=== PATIENT | female | born 1940 | race Caucasian/White ===

== ENCOUNTER 2019-03-25 13:39 | Outpatient (CLI) | payer MEDICARE, OTHER, SELFPAY ==
--- NOTE | 2019-03-25 13:44 | DI.RAD.S_ITS ---
PROCEDURE: PAIN L/SI FACET INJ/BLK 1STL INDICATIONS: Left L4-5 L5-S1 facets FINDINGS: Fluoroscopic spot filming was performed to verify placement of spinal needles at the L4-L5 and L5-S1 level(s), as labeled on the films. Appropriate location(s) of the needle tip(s) was confirmed by injection of iodinated contrast. Dictated by: Gerry Pizarro M.D. on 03/25/2019 at 16:00 Approved by: Gerry Pizarro M.D. on 03/25/2019 at 16:00
[2019-03-25 14:17] VITALS: BP 156/62; PULSE 49; RESP 16; TEMP 35.8; O2SAT 100
[2019-03-25 14:55] VITALS: BP 176/55; PULSE 52; RESP 16; O2SAT 100
--- NOTE | 2019-03-25 14:56 | PC.NURSE ---
NO SEDATION MEDS GIVEN
[2019-03-25 15:00] VITALS: BP 183/62; PULSE 57; RESP 16; O2SAT 100
[2019-03-25] MEDS: BETAMETHASONE 30 MG/5 ML MDV 12 MG INJ (15:02)
[2019-03-25] MEDS: LIDOCAINE 1% 20 ML 10 ML INJ (15:02)
[2019-03-25] MEDS: BUPIVACAINE 0.5% (PF) VIAL 2 ML INJ (15:02)
[2019-03-25] MEDS: IOPAMIDOL 15 ML VIAL 3 ML INJ (15:03)
--- NOTE | 2019-03-25 15:05 | PC.NURSE ---
ASSISTING PT OFF TABLE AND TRANSPORTING TO POST PROC AREA IN STABLE CONDITION. NO SEDATION MEDS GIVEN.
--- NOTE | 2019-03-25 15:12 | PM.PROC.1 ---
Procedures Date/Time Date of procedure: 03/25/19 Time of procedure: 15:12 General Procedure description: PREOP DIAGNOSIS 1. FACET ARTHROPATHY, 2. AXIAL LBP, 3. MULTILEVEL DDD, POST OP DIAGNOSIS 1. FACET ARTHROPATHY, 2. AXIAL LBP, 3. MULTILEVEL DDD, PROCEDURES 1. FLUORSCOPICALLY GUIDED CONTRAST CONTROLLED FACET JOINT INJECTIONS LEFT L4/5, L5/S1 SURGEON: Danny Brown, DO INDICATIONS Zunilda is referred by Dr. Priest for treatment of Axial LBP FINDINGS Multilevel Facet Arthropathy with Clinically significant axial LBP DESCRIPTION OF PROCEDURE Fluoroscopically guided, contrast-controlled left L4/5, L5/S1 facet joint injections. Following review of allergy and review of potential side effects and complications, including, but not necessarily limited to, infection, allergic reaction, local tissue breakdown, stroke, temporary or permanent nerve injury, paralysis, and possible , the patient indicated that the patient understood and agreed to proceed. An informed consent document was signed by the patient, witnessed by a nurse, and placed in the patient's chart. Additionally, other treatment options including medications, modalities, and physical therapy were reviewed with the patient. After review of previous anaesthesic history and IV conscious sedation the patient was deemed safe to proceed with todays procedure with IV conscious sedation as ASA class II designation. Safety time-out was performed to confirm patient ID, procedure to be performed and site of procedure. IV sedation was deemed unnecessary and thus not administered by the RN after DO order, titrated to patient comfort during the course of the procedure while the patient remained responsive to all verbal commands. In the prone position, following sterile prep and drape of the lumbar region, the posterior aspect of the left L4/5, L5/S1 facet joints were identified fluoroscopically. The skin was anesthetized via a 25-gauge 1.5-inch needle with 1% lidocaine solution into the corresponding facet joints. At this point, a 22-gauge 3.5-inch spinal needle was atraumatically introduced and advanced under fluoroscopic guidance into the corresponding facet joints. Following negative aspiration, injections of approximately 0.2-cc of Isovue 200 confirmed interarticular placement without vascular uptake. Radiological data, including multiple fluoroscopic views of the lumbosacral spine, reveal a spinal needle at the left L4/5, L5/S1 facet joints. Subsequent views show flow of contrast material both superiorly and inferiorly within the joint space without vascular or intrathecal uptake. At this point, a total of 0.5 cc including a mixture of 0.25cc Marcaine and 0.25cc betamethasone was injected without complication into each of the corresponding facet joints. The procedure tolerated the procedure well without signs or symptoms of complications prior to transfer to the recovery area continued monitoring without incident. The patient was then transferred to the recovery area where they were observed for an appropriate period of time after the injection. The patient reported a VAS score of 7 prior to the procedure and a post-procedure VAS of 0. Total Fluoroscopy Time: 12.7 seconds Total Conscious Sedation Time: 24min POST OP INSTRUCTIONS The patient was provided a Pain Log to continue to record their response to the target-specific procedure prior to follow-up visit with their referring physician. Additionally, specific post-injection care instructions and a contact number to our office were provided if concerns arise regarding possible complications associated with the procedure are suspected. Danny Brown DO Complications: none
[2019-03-25 15:15] VITALS: BP 160/65; PULSE 52; RESP 16; O2SAT 98
[2019-03-25 15:20] VITALS: BP 168/64; PULSE 51; RESP 16; O2SAT 98
--- NOTE | 2019-03-25 15:59 | PC.NURSE ---
Post procedure discharge note: Patient arrived for post procedure monitoring without sedation. AA/O x 3. Handoff report received from Tara Leonardo RN. Able to transfer from w/c to recliner independently. VSS, O2 Sat WNL on RA. Discharge instructions given and explained with good understanding by patient and niece. Pain level 0/10. Denies any unusual numbness or tingling to lower extremities. Discharge to home w/c to car at 1530.
== END 2019-03-25 15:30 | disposition home or self-care (01) ==
PROVIDERS: Family Provider Family Medicine; PCP Family Medicine; Visit Provider Physical Medicine & Rehabilitation
DX: M47.816 Spondylosis without myelopathy or radiculopathy, lumbar region (principal); M47.817 Spondylosis without myelopathy or radiculopathy, lumbosacral region; M54.5 Low back pain; M51.36 Other intervertebral disc degeneration, lumbar region; M51.37 Other intervertebral disc degeneration, lumbosacral region
CPT/HCPCS: 64493; 64494; 99152; J0702; J2250; J3010

== ENCOUNTER → 2019-06-26 10:58 | Outpatient (CLI) | payer MEDICARE, OTHER, SELFPAY ==
--- NOTE | 2019-06-26 11:01 | DI.RAD.S_ITS ---
PROCEDURE: XR LUMBAR SPINE MIN 4V INDICATIONS: Bilateral lower extremity neurogenic claudication TECHNIQUE: 5 views of the lumbar spine were acquired. COMPARISON: None. FINDINGS: Bones: No fracture or focal osseous destruction. Levoscoliosis is noted. Multilevel degenerative endplate sclerosis and spurring. Diffuse facet arthropathy. Straightening of the normal lordotic curvature. Severe diffuse narrowing of lumbar disc spaces. Scattered vascular calcifications seen in the aorta. Bilateral hip arthroplasties. Extensive vascular calcifications IMPRESSION: Severe diffuse lumbar spondylosis and facet arthropathy Levoscoliosis Dictated by: Grery Pizarro M.D. on 06/26/2019 at 14:26 Approved by: Gerry Pizarro M.D. on 06/26/2019 at 14:29
--- NOTE | 2019-06-26 11:01 | DI.MRI.S_ITS ---
PROCEDURE: MR LUMBAR SPINE WO CON INDICATIONS: Bilateral lower extremity neurogenic claudication TECHNIQUE: Noncontrast sagittal T1 spin echo and T2 fast echo, sagittal STIR, axial T1 and T2 fast spin echo through the lumbar spine. In cases with scoliosis, additional coronal T2 fast spin echo may be performed. COMPARISON: None. FINDINGS: Image quality: Excellent. Alignment and Curvature: There is normal bony alignment. Bone Marrow: Marrow is of normal overall signal. No acute vertebral body compression fractures. Large chronic appearing Schmorl's node involving the L2 inferior endplate. Spinal Cord: Conus medullaris terminates at the L1-L2 level. Visualized cord demonstrates normal signal and size. Paraspinous Soft Tissues: No paravertebral masses. Mild aneurysmal dilatation of the aorta measuring 3.2 cm L1-L2: Mild central canal narrowing. Partial effacement of the right lateral recess. The left lateral recess appears patent. Moderate bilateral foraminal stenosis with slight nerve root compression. L2-L3: Minimal central canal narrowing. Partial effacement of both lateral recesses with bilaterally symmetric appearance. Mild left foraminal narrowing. Moderate right foraminal stenosis with slight nerve root compression. L3-L4: Moderate central canal stenosis. Partial effacement of both lateral recesses with bilaterally symmetric appearance. Moderate to severe left foraminal stenosis with nerve root compression. Severe right foraminal stenosis with nerve root compression. L4-L5: Mild/moderate central canal narrowing. Partial effacement of both lateral recesses with, with asymmetric appearance, left greater than right. L5-S1: Mild central canal narrowing. Lateral recesses appear grossly patent. Mild to moderate right foraminal narrowing with questionable nerve root compression severe left foraminal stenosis with nerve root compression.. IMPRESSION: Multilevel lumbar spondylosis and facet arthropathy Moderate L3-L4 and L4-L5 central canal stenosis. Diffuse bilateral foraminal stenosis as detailed above by spinal level. Mild aneurysmal ectasia of the visualized abdominal aorta which could be monitored with continued ultrasound surveillance Dictated by: Gerry Pizarro M.D. on 06/26/2019 at 14:04 Approved by: Gerry Pizarro M.D. on 06/26/2019 at 14:11
== END ==
PROVIDERS: Family Provider Family Medicine; PCP Family Medicine; Referring Provider Family Medicine; Visit Provider Physical Medicine & Rehabilitation
DX: M48.062 Spinal stenosis, lumbar region with neurogenic claudication (principal); M41.27 Other idiopathic scoliosis, lumbosacral region; I77.811 Abdominal aortic ectasia
CPT/HCPCS: 72110; 72148

== ENCOUNTER → 2019-10-20 10:56 | Outpatient (CLI) | payer MEDICARE, OTHER, SELFPAY ==
[2019-10-22 00:18] LABS: COVID19 Sendout Not Detected (Not Detect)
== END ==
PROVIDERS: Family Provider Family Medicine; PCP Family Medicine; Visit Provider Nurse Practitioner
DX: Z01.812 Encounter for preprocedural laboratory examination (principal)
CPT/HCPCS: 87635

== ENCOUNTER 2019-10-23 09:24 | Outpatient (CLI) | payer MEDICARE, OTHER, SELFPAY ==
[2019-10-23] VITALS (8 sets, daily range): BP systolic 151–188; BP diastolic 55–89; PULSE 51–67; RESP 16; TEMP 36.5; O2SAT 93–100
--- NOTE | 2019-10-23 09:26 | DI.RAD.S_ITS ---
PROCEDURE: PAIN L/S TRANSFORAMINAL INJECT INDICATIONS: SPONDYLOSIS FINDINGS: Fluoroscopic spot filming was performed to verify placement of spinal needles at the L3-L4 neural foraminal level(s), as labeled on the films. Appropriate location(s) of the needle tip(s) was confirmed by injection of iodinated contrast. IMPRESSION: Successful L3-L4 region neural foraminal needle tip localization on the left. Dictated by: Scott Saravia M.D. on 10/23/2019 at 12:15 Approved by: Scott Saravia M.D. on 10/23/2019 at 12:16
[2019-10-23] MEDS: MIDAZOLAM 5 MG/5 ML VIAL IV (11:40)
[2019-10-23] MEDS: IOPAMIDOL 15 ML VIAL 3 ML INJ (11:48)
[2019-10-23] MEDS: BUPIVACAINE 0.25% (PF) VIAL 2 ML INJ (11:48)
[2019-10-23] MEDS: BETAMETHASONE 30 MG/5 ML MDV 6 MG INJ (11:49)
[2019-10-23] MEDS: DEXAMETHASONE 10 MG/ML VIAL 20 MG INJ (11:49)
--- NOTE | 2019-10-23 11:56 | PM.PROC.1 ---
Procedures Date/Time Date of procedure: 10/23/19 Time of procedure: 11:56 General Procedure description: PROVIDER: Danny Brown DO Operative Note PREOP DIAGNOSIS 1. FORAMINAL STENOSIS WITH LE SYMPTOMS, POST OP DIAGNOSIS 1. FORAMINAL STENOSIS WITH LE SYMPTOMS, PROCEDURES 1. FLUOROSCOPICALLY GUIDED CONTRAST CONTROLLED TRANSFORAMINAL EPIDURAL STEROID INJECTION - LEFT L3/4 TFESI SURGEON: Danny Brown, INDICATIONS Zunilda is referred by Dr. Priest for treatment of Foraminal Stenosis with left LE Symptoms FINDINGS Foraminal Nerve Root Compression secondary to disc disease and facet hypertrophy DESCRIPTION OF PROCEDURE Following review of allergy and review of potential side effects and complications, including, but not necessarily limited to, infection, allergic reaction, local tissue breakdown, stroke, temporary or permanent nerve injury, paralysis, and possible , the patient indicated that the patient understood and agreed to proceed. An informed consent document was signed by the patient, witnessed by a nurse, and placed in the patient's chart. Additionally, other treatment options including medications, modalities, and physical therapy were reviewed with the patient. After review of previous anaesthesic history and IV conscious sedation the patient was deemed safe to proceed with todays procedure with IV conscious sedation as ASA class II designation. Safety time-out was performed to confirm patient ID, procedure to be performed and site of procedure. IV sedation was accomplished with a combination of 2mg of Versed was administered by the RN after DO order, titrated to patient comfort during the course of the procedure while the patient remained responsive to all verbal commands In the prone position following sterile prep and drape of the lumbar region, the left L3/4 posterior neuroforamen was identified fluoroscopically. The skin was anesthetized via a 25-gauge 1.5-inch needle with 1% lidocaine solution. At this point, a 25-gauge 3.5-inch spinal needle was atraumatically introduced and advanced under fluoroscopic guidance through the posterior left L3/4 neuroforamen to approximately the anterior aspect of the canal. Depth was confirmed on lateral view. Following negative aspiration, injection of approximately 1.5 cc of Isovue 200 under live fluoroscopy in the AP view confirmed excellent flow along the nerve root, into the epidural space without vascular or intrathecal uptake observed Radiological data, including multiple fluoroscopic views of the lumbosacral spine, reveal a spinal needle at the left L3/4 posterior neuroforamen. Subsequent views show flow of contrast material flowing superiorly and inferiorly along the nerve root confirming epidural flow. Subsequently, a test dose of 1.5 cc of 1% lidocaine solution was administered and patient was observed for two minutes for signs or symptoms of complications, including abdominal pain, shortness of breath, bilateral upper or lower extremity weakness, nausea and vomiting, prior to steroid injection. At this point, a total of 3cc or 20mg of dexamethasone and 6mg betamethasone was injected without incident. The patient tolerated the procedure well without signs or symptoms of complications prior to transfer to the recovery area continued monitoring without incident. The patient was then transferred to the recovery area where they were observed for an appropriate time after the injection. The patient reported a VAS score of 7 prior to the procedure and a post-procedure VAS of 0. Total Fluoroscopy Time: 7 seconds Total Conscious Sedation Time: 24min POST OP INSTRUCTIONS The patient was provided a Pain Log to continue to record their response to the target-specific procedure prior to follow-up visit with their referring physician. Additionally, specific post-injection care instructions and a contact number to our office were provided if concerns arise regarding possible complications associated with the procedure are suspected. Danny Brown, Complications: none
--- NOTE | 2019-10-23 12:13 | PC.NURSE ---
pt returned to pre proc room via wc, pt in stable condition and minimal assistance from wc to chair. Monitoring resumed by this RN
== END 2019-10-23 12:18 ==
LOC: RAD 09:26
PROVIDERS: Family Provider Family Medicine; PCP Family Medicine; Referring Provider Physical Medicine & Rehabilitation; Visit Provider Physical Medicine & Rehabilitation
DX: M48.061 Spinal stenosis, lumbar region without neurogenic claudication (principal); M51.16 Intervertebral disc disorders with radiculopathy, lumbar region
CPT/HCPCS: 64483; 99152; J0702; J1100; J2250; J3010

== ENCOUNTER → 2019-11-19 11:05 | Outpatient (CLI) | payer MEDICARE, OTHER, SELFPAY ==
--- NOTE | 2019-11-19 11:09 | DI.US.S_ITS ---
PROCEDURE: US PERIPH VENOUS LOW EXTREM LT INDICATIONS: R/O LT LOWER EXT DVT TECHNIQUE: Real-time imaging, as well as color and pulse Doppler interrogation, were performed of the lower extremity deep veins from the inguinal ligament to the popliteal fossa. COMPARISON: None. FINDINGS: The common femoral, femoral and popliteal veins are normally compressible, and free of intraluminal thrombus. Color and pulse Doppler demonstrate normal phasic intraluminal flow. There is normal augmentation response to distal compression maneuver. IMPRESSION: No evidence of deep vein thrombosis of the left lower extremity. Dictated by: Michael Carter M.D. on 11/19/2019 at 11:55 Approved by: Michael Carter M.D. on 11/19/2019 at 11:56
== END ==
PROVIDERS: Family Provider Family Medicine; PCP Family Medicine; Referring Provider Physical Medicine & Rehabilitation; Visit Provider Physical Medicine & Rehabilitation
DX: R60.0 Localized edema (principal); M54.16 Radiculopathy, lumbar region; M41.20 Other idiopathic scoliosis, site unspecified; Z86.79 Personal history of other diseases of the circulatory system
CPT/HCPCS: 93971; 99213

== ENCOUNTER → 2020-06-01 12:20 | Outpatient (CLI) | payer MEDICARE, OTHER, SELFPAY ==
[2020-06-01 14:44] LABS: COVID19 -Nasal RAPID Negative (Negative)
== END ==
PROVIDERS: Family Provider Family Medicine; PCP Family Medicine; Visit Provider Physical Medicine & Rehabilitation
DX: Z20.822 Contact with and (suspected) exposure to COVID-19 (principal)
CPT/HCPCS: 87635; C9803

== ENCOUNTER 2020-06-03 12:25 | Outpatient (CLI) | payer MEDICARE, OTHER, SELFPAY ==
--- NOTE | 2020-06-03 12:27 | DI.RAD.S_ITS ---
PROCEDURE: PAIN L/S TRANSFORAMINAL INJECT INDICATIONS: SPONDYLOSIS COMPARISON: [facility], , PAIN L/S TRANSFORAMINAL INJECT, 10/23/2019, 10:43. FINDINGS: Fluoroscopic spot filming was performed to verify placement of spinal needles at the left L3-L4 neural foramen level(s), as labeled on the films. Appropriate location(s) of the needle tip(s) was confirmed by injection of iodinated contrast. IMPRESSION: Successful needle tip localization for transforaminal epidural steroid injection. Dictated by: Scott Saravia M.D. on 06/03/2020 at 14:09 Approved by: Scott Saravia M.D. on 06/03/2020 at 14:10
[2020-06-03 13:06] VITALS: BP 143/55; PULSE 54; RESP 18; TEMP 36.6; O2SAT 99
[2020-06-03 13:35] VITALS: BP 200/81; PULSE 54; RESP 16; O2SAT 100
[2020-06-03] MEDS: fentaNYL 100 MCG/2 ML INJ 50 MCG IV (13:35)
[2020-06-03] MEDS: MIDAZOLAM 5 MG/5 ML VIAL IV (13:35)
[2020-06-03 13:40] VITALS: BP 157/65; PULSE 57; RESP 17; O2SAT 100
[2020-06-03] MEDS: IOPAMIDOL 15 ML VIAL 3 ML INJ (13:41)
[2020-06-03] MEDS: BUPIVACAINE 0.25% (PF) VIAL 30 ML INJ (13:42)
[2020-06-03] MEDS: BETAMETHASONE 30 MG/5 ML MDV 6 MG INJ (13:42)
[2020-06-03] MEDS: DEXAMETHASONE 10 MG/ML VIAL 20 MG INJ (13:43)
--- NOTE | 2020-06-03 13:48 | PM.PROC.IR.1 ---
Date/Time/Diagnoses Date of procedure: 06/03/20 Time of procedure: 13:48 Pre-procedure diagnosis: 1. FORAMINAL STENOSIS WITH LE SYMPTOMS Post-procedure diagnosis: same Procedure Notes Procedure: 1. FLUOROSCOPICALLY GUIDED CONTRAST CONTROLLED TRANSFORAMINAL EPIDURAL STEROID INJECTION - LEFT L3/4 TFESI Indications: Zunilda is referred by Dr. Priest for treatment of Foraminal Stenosis with left LE Symptoms Physician: Danny Brown Total Fluoroscopy time (seconds): 7 Total sedation minutes: 9 Complications: none Procedure in detail & Post-procedure care: FINDINGS Foraminal Nerve Root Compression secondary to disc disease and facet hypertrophy DESCRIPTION OF PROCEDURE Following review of allergy and review of potential side effects and complications, including, but not necessarily limited to, infection, allergic reaction, local tissue breakdown, stroke, temporary or permanent nerve injury, paralysis, and possible , the patient indicated that the patient understood and agreed to proceed. An informed consent document was signed by the patient, witnessed by a nurse, and placed in the patient's chart. Additionally, other treatment options including medications, modalities, and physical therapy were reviewed with the patient. After review of previous anaesthesic history and IV conscious sedation the patient was deemed safe to proceed with today?s procedure with IV conscious sedation as ASA class II designation. Safety time-out was performed to confirm patient ID, procedure to be performed and site of procedure. IV sedation was accomplished with a combination of 2mg of Versed was administered by the RN after DO order, titrated to patient comfort during the course of the procedure while the patient remained responsive to all verbal commands In the prone position following sterile prep and drape of the lumbar region, the left L3/4 posterior neuroforamen was identified fluoroscopically. The skin was anesthetized via a 25-gauge 1.5-inch needle with 1% lidocaine solution. At this point, a 25-gauge 3.5-inch spinal needle was atraumatically introduced and advanced under fluoroscopic guidance through the posterior left L3/4 neuroforamen to approximately the anterior aspect of the canal. Depth was confirmed on lateral view. Following negative aspiration, injection of approximately 1.5 cc of Isovue 200 under live fluoroscopy in the AP view confirmed excellent flow along the nerve root, into the epidural space without vascular or intrathecal uptake observed Radiological data, including multiple fluoroscopic views of the lumbosacral spine, reveal a spinal needle at the left L3/4 posterior neuroforamen. Subsequent views show flow of contrast material flowing superiorly and inferiorly along the nerve root confirming epidural flow. Subsequently, a test dose of 1.5cc of 1% lidocaine solution was administered and patient was observed for two minutes for signs or symptoms of complications, including abdominal pain, shortness of breath, bilateral upper or lower extremity weakness, nausea and vomiting, prior to steroid injection. At this point, a total of 3cc or 20mg of dexamethasone and 6mg betamethasone was injected without incident. The patient tolerated the procedure well without signs or symptoms of complications prior to transfer to the recovery area continued monitoring without incident. The patient was then transferred to the recovery area where they were observed for an appropriate time after the injection. The patient reported a VAS score of 7 prior to the procedure and a post-procedure VAS of 0. POST OP INSTRUCTIONS The patient was provided a Pain Log to continue to record their response to the target-specific procedure prior to follow-up visit with their referring physician. Additionally, specific post-injection care instructions and a contact number to our office were provided if concerns arise regarding possible complications associated with the procedure are suspected.
[2020-06-03 14:00] VITALS: BP 123/58; PULSE 18; RESP 22; O2SAT 100
[2020-06-03 14:05] VITALS: BP 151/70; PULSE 56; RESP 22; O2SAT 100
[2020-06-03 14:30] VITALS: BP 132/60; PULSE 55; RESP 15; O2SAT 100
== END 2020-06-03 14:15 | disposition home or self-care (01) ==
LOC: RAD 12:26
PROVIDERS: Family Provider Family Medicine; PCP Family Medicine; Referring Provider Family Medicine; Visit Provider Physical Medicine & Rehabilitation
DX: M48.061 Spinal stenosis, lumbar region without neurogenic claudication (principal); M51.16 Intervertebral disc disorders with radiculopathy, lumbar region
CPT/HCPCS: 64483; J0702; J1100; J2250; J3010

== ENCOUNTER → 2020-07-16 12:35 | Outpatient (CLI) | payer MEDICARE, OTHER, SELFPAY ==
--- NOTE | 2020-07-16 12:36 | DI.RAD.S_ITS ---
PROCEDURE: XR LUMBAR SPINE MIN 4V INDICATIONS: BACK PAIN TECHNIQUE: 5 views of the lumbar spine were acquired, including bilateral oblique views COMPARISON: [facility], CR, XR LUMBAR SPINE MIN 4V, 06/26/2019, 11:32. FINDINGS: Bones: 5 nonrib-bearing vertebrae are present. There is mild L3-L4 anterolisthesis.. There is approximately 17? of convex left lumbar spine scoliosis. No vertebral body compression fractures. No suspicious bony lesions. Severe L3-L4, L4-L5 and L5-S1 degenerative disc disease. Moderate L1-L2 and L2-L3 degenerative disc disease. Moderate L2-L3, L3-L4, L4-L5 and L5-S1 facet arthropathy. Mild L1-L2 facet arthropathy. Bilateral hip arthroplasties. Soft tissues: Overlying bowel gas pattern is normal. Scattered atherosclerotic calcifications involving the abdominal and pelvic vasculature. Oblique images: No pars defects. IMPRESSION: 1. Multilevel degenerative disc disease. 2. Multilevel facet arthropathy. 3. No fracture. No acute osseous lesion. If symptoms and/or clinical suspicion for pathology persists, evaluation with MRI should be considered for further assessment. Dictated by: Ladan Pugh MD, PhD on 07/16/2020 at 16:54 Approved by: Ladan Pugh MD, PhD on 07/16/2020 at 16:56
== END ==
PROVIDERS: Family Provider Family Medicine; PCP Family Medicine; Referring Provider Physical Medicine & Rehabilitation; Visit Provider Physical Medicine & Rehabilitation
DX: M51.36 Other intervertebral disc degeneration, lumbar region (principal); M54.5 Low back pain; M54.16 Radiculopathy, lumbar region; M47.817 Spondylosis without myelopathy or radiculopathy, lumbosacral region; M48.00 Spinal stenosis, site unspecified; M41.20 Other idiopathic scoliosis, site unspecified; Z96.641 Presence of right artificial hip joint
CPT/HCPCS: 72110; 99213

== ENCOUNTER → 2023-10-04 13:29 | Outpatient (CLI) | payer MEDICARE, OTHER, SELFPAY ==
--- NOTE | 2023-10-04 13:32 | DI.RAD.S_ITS ---
PROCEDURE: XR LUMBAR SPINE MIN 4V INDICATIONS: BACK PAIN TECHNIQUE: 5 views of the lumbar spine were acquired, including bilateral oblique views. COMPARISON: [facility], , XR LUMBAR SPINE MIN 4V, 07/16/2020, 12:42. FINDINGS: Bones: 5 [id number] vertebrae are present. There is moderate levoscoliosis. No vertebral body compression fractures. No suspicious bony lesions. Multilevel degenerative disc disease, severe at L2-L3, L3-L4 and L4-L5, moderate at T12-L1, L1-L2 and L5-S1. Moderate facet arthropathy throughout the lumbar spine. Note is made of bilateral hip arthroplasties. Soft tissues: Overlying bowel gas pattern is normal. Mild abdominal aortic aneurysm measuring 3.6 cm. Severe atherosclerotic calcifications. Oblique images: No pars defects. IMPRESSION: 1. No acute bony abnormality. 2. Severe mild the level degenerative disc disease and moderate facet arthropathy in lumbar spine. 3. Moderate levoscoliosis. 4. Osteopenia. 5. Mild abdominal aortic aneurysm a severe atherosclerosis. Dictated by: Jose Sherman M.D. on 10/04/2023 at 14:28 Approved by: Jose Sherman M.D. on 10/04/2023 at 14:31
== END ==
PROVIDERS: Family Provider Family Medicine; PCP Family Medicine; Referring Provider Physical Medicine & Rehabilitation; Visit Provider Physical Medicine & Rehabilitation
DX: M47.27 Other spondylosis with radiculopathy, lumbosacral region (principal); M51.16 Intervertebral disc disorders with radiculopathy, lumbar region; M51.17 Intervertebral disc disorders with radiculopathy, lumbosacral region; M47.26 Other spondylosis with radiculopathy, lumbar region; I71.40 Abdominal aortic aneurysm, without rupture, unspecified; I70.0 Atherosclerosis of aorta; M41.9 Scoliosis, unspecified; M85.88 Other specified disorders of bone density and structure, other site; Z96.643 Presence of artificial hip joint, bilateral
CPT/HCPCS: 72110

== ENCOUNTER 2023-10-23 12:34 | Outpatient (CLI) | payer MEDICARE, OTHER, SELFPAY ==
[2023-10-23] VITALS (10 sets, daily range): BP systolic 101–154; BP diastolic 53–66; PULSE 49–54; RESP 14–20; TEMP 36; O2SAT 95–98
--- NOTE | 2023-10-23 13:30 | DI.RAD.S_ITS ---
PROCEDURE: PAIN L/S TRANSFORAM INJECT SERENITY COMPARISON: None. INDICATIONS: Bilateral L3-4 transforaminal VINNY FINDINGS: Needle placement at the bilateral L3-L4 levels. Contrast is injected. IMPRESSION: Intraoperative guidance. Dictated by: Jin Swift M.D. on 10/23/2023 at 22:25 Approved by: Jin Swift M.D. on 10/23/2023 at 22:26
[2023-10-23] MEDS: MIDAZOLAM 2 MG/2 ML VIAL 1 MG IV (13:58)
[2023-10-23] MEDS: BUPIVACAINE 0.25% (PF) VIAL 2 ML INJ (14:01)
[2023-10-23] MEDS: DEXAMETHASONE 10 MG/ML VIAL 20 MG INJ (14:02)
[2023-10-23] MEDS: iopamidoL 15 ML VIAL 3 ML INJ (14:02)
[2023-10-23] MEDS: BETAMETHASONE 30 MG/5 ML MDV 12 MG INJ (14:02)
--- NOTE | 2023-10-23 14:18 | PM.PROC.IR.1 ---
Date/Time/Diagnoses Date of procedure: 10/23/23 Time of procedure: 14:19 Pre-procedure diagnosis: 1. FORAMINAL STENOSIS WITH LE SYMPTOMS Post-procedure diagnosis: same Procedure Notes Procedure: 1. FLUOROSCOPICALLY GUIDED CONTRAST CONTROLLED TRANSFORAMINAL EPIDURAL STEROID INJECTION - BILATERAL L3/4 TFESI Indications: Zunilda is referred by Dr. Priest for treatment of Foraminal Stenosis with bilateral LE Symptoms Physician: Danny Brown Total Fluoroscopy time (seconds): 19 Total sedation minutes: 14 Complications: none Procedure in detail & Post-procedure care: FINDINGS Foraminal Nerve Root Compression secondary to disc disease and facet hypertrophy DESCRIPTION OF PROCEDURE Following review of allergy and review of potential side effects and complications, including, but not necessarily limited to, infection, allergic reaction, local tissue breakdown, stroke, temporary or permanent nerve injury, paralysis, and possible , the patient indicated that the patient understood and agreed to proceed. An informed consent document was signed by the patient, witnessed by a nurse, and placed in the patient's chart. Additionally, other treatment options including medications, modalities, and physical therapy were reviewed with the patient. After review of previous anaesthesic history and IV conscious sedation the patient was deemed safe to proceed with today?s procedure with IV conscious sedation as ASA class II designation. Safety time-out was performed to confirm patient ID, procedure to be performed and site of procedure. IV sedation was accomplished with a combination of 1mg of Versed was administered by the RN after DO order, titrated to patient comfort during the course of the procedure while the patient remained responsive to all verbal commands In the prone position following sterile prep and drape of the lumbar region, the right L3/4 posterior neuroforamen was identified fluoroscopically. The skin was anesthetized via a 25-gauge 1.5-inch needle with 1% lidocaine solution. At this point, a 25-gauge 3.5-inch spinal needle was atraumatically introduced and advanced under fluoroscopic guidance through the posterior right L3/4 neuroforamen to approximately the anterior aspect of the canal. Depth was confirmed on lateral view. Following negative aspiration, injection of approximately 1.5cc of Isovue 200 under live fluoroscopy in the AP view confirmed excellent flow along the nerve root, into the epidural space without vascular or intrathecal uptake observed Radiological data, including multiple fluoroscopic views of the lumbosacral spine, reveal a spinal needle at the right L3/4 posterior neuroforamen. Subsequent views show flow of contrast material flowing superiorly and inferiorly along the nerve root confirming epidural flow. Subsequently, a test dose of 1.5cc of 1% lidocaine solution was administered and patient was observed for two minutes for signs or symptoms of complications, including abdominal pain, shortness of breath, bilateral upper or lower extremity weakness, nausea and vomiting, prior to steroid injection. At this point, a total of 2cc or 10mg of dexamethasone and 6mg betamethasone was injected without incident. Attention was then refocused to the left L3/4 level where the identical procedure was replicated. The procedure tolerated the procedure well without signs or symptoms of complications prior to transfer to the recovery area continued monitoring without incident. The patient was then transferred to the recovery area where they were observed for an appropriate time after the injection. The patient reported a VAS score of 7 prior to the procedure and a post-procedure VAS of 0. POST OP INSTRUCTIONS The patient was provided a Pain Log to continue to record their response to the target-specific procedure prior to follow-up visit with their referring physician. Additionally, specific post-injection care instructions and a contact number to our office were provided if concerns arise regarding possible complications associated with the procedure are suspected.
--- NOTE | 2023-10-23 14:27 | PC.NURSE ---
after procedure completed. Patient assisted to sitting position on side of table. Patient states I can't feel my legs patient unable to lift legs up or flex forward. Dr Brwon total assist transferred patient into w/c. She denies any pain at this time. Dr Kevin huffman assisted transferring patient into post procedure chair from w/c.
--- NOTE | 2023-10-23 16:15 | PC.NURSE ---
Recovery/numb lower legs Patient recovered today post pain injection. Patient lower legs numb upon arriving to post care room at 1420. Patient unable to move legs and 3 person assist to move patient from wheelchair to recovery chair. Patient did well in recovery. Legs beginning to have tingling per patient at approximately 1530. Patient then able to move both lower legs at approximately 1545. Patient able to stand with one person assist at 1550. Patient able to take small steps with one person assist, Dr. Brown in post care room while patient taking steps. Patient uses walker at home. Patient states that her son will be at home with her. Dr. Brown verbalized agreement with this RN that patient was able to D/C home. 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
== END 2023-10-23 16:09 | disposition home or self-care (01) ==
LOC: RAD 12:35
PROVIDERS: Family Provider Family Medicine; PCP Family Medicine; Referring Provider Physical Medicine & Rehabilitation; Visit Provider Physical Medicine & Rehabilitation
DX: M48.061 Spinal stenosis, lumbar region without neurogenic claudication (principal); M51.16 Intervertebral disc disorders with radiculopathy, lumbar region; M47.26 Other spondylosis with radiculopathy, lumbar region
CPT/HCPCS: 64483; 99152; J0702; J1100; J2250; J3490

== ENCOUNTER 2024-06-10 13:55 | Outpatient (CLI) | payer MEDICARE, OTHER, SELFPAY ==
[2024-06-10] VITALS (10 sets, daily range): BP systolic 120–180; BP diastolic 57–90; PULSE 50–56; RESP 14–18; TEMP 36.7; O2SAT 93–100
--- NOTE | 2024-06-10 13:57 | DI.RAD.S_ITS ---
PROCEDURE: PAIN L/S TRANSFORAM INJECT SERENITY COMPARISON: [facility], XA, PAIN L/S TRANSFORAM INJECT SERENITY, 10/23/2023, 14:01. INDICATIONS: Bilateral L3/4 TFESI FINDINGS: Needle placement at the bilateral L3-L4 levels. IMPRESSION: Intraoperative guidance. Dictated by: Jin Swift M.D. on 06/10/2024 at 23:03 Approved by: Jin Swift M.D. on 06/10/2024 at 23:03
[2024-06-10] MEDS: MIDAZOLAM 2 MG/2 ML VIAL 1 MG IV ×2 (15:17→15:22)
[2024-06-10] MEDS: DEXAMETHASONE 10 MG/ML VIAL 20 MG INJ (15:24)
[2024-06-10] MEDS: iopamidoL 15 ML VIAL 3 ML INJ (15:24)
[2024-06-10] MEDS: BUPIVACAINE 0.25% (PF) VIAL 2 ML INJ (15:24)
[2024-06-10] MEDS: BETAMETHASONE 30 MG/5 ML MDV 6 MG INJ (15:25)
[2024-06-10] MEDS: BETAMETHASONE 30 MG/5 ML MDV 12 MG INJ (15:25)
--- NOTE | 2024-06-10 15:43 | PM.PROC.IR.1 ---
Date/Time/Diagnoses Date of procedure: 06/10/24 Time of procedure: 15:43 Pre-procedure diagnosis: 1. FORAMINAL STENOSIS WITH LE SYMPTOMS Post-procedure diagnosis: same Procedure Notes Procedure: 1. FLUOROSCOPICALLY GUIDED CONTRAST CONTROLLED TRANSFORAMINAL EPIDURAL STEROID INJECTION - BILATERAL L3/4 TFESI Indications: Zunilda is referred by Dr. Priest for treatment of Foraminal Stenosis with bilateral LE Symptoms Physician: Danny Brown Total Fluoroscopy time (seconds): 20 Total sedation minutes: 21 Complications: none Procedure in detail & Post-procedure care: FINDINGS Foraminal Nerve Root Compression secondary to disc disease and facet hypertrophy DESCRIPTION OF PROCEDURE Following review of allergy and review of potential side effects and complications, including, but not necessarily limited to, infection, allergic reaction, local tissue breakdown, stroke, temporary or permanent nerve injury, paralysis, and possible , the patient indicated that the patient understood and agreed to proceed. An informed consent document was signed by the patient, witnessed by a nurse, and placed in the patient's chart. Additionally, other treatment options including medications, modalities, and physical therapy were reviewed with the patient. After review of previous anaesthesic history and IV conscious sedation the patient was deemed safe to proceed with today?s procedure with IV conscious sedation as ASA class II designation. Safety time-out was performed to confirm patient ID, procedure to be performed and site of procedure. IV sedation was accomplished with a combination of 2mg of Versed was administered by the RN after DO order, titrated to patient comfort during the course of the procedure while the patient remained responsive to all verbal commands In the prone position following sterile prep and drape of the lumbar region, the right L3/4 posterior neuroforamen was identified fluoroscopically. The skin was anesthetized via a 25-gauge 1.5-inch needle with 1% lidocaine solution. At this point, a 25-gauge 3.5-inch spinal needle was atraumatically introduced and advanced under fluoroscopic guidance through the posterior right L3/4 neuroforamen to approximately the anterior aspect of the canal. Depth was confirmed on lateral view. Following negative aspiration, injection of approximately 1.5cc of Isovue 200 under live fluoroscopy in the AP view confirmed excellent flow along the nerve root, into the epidural space without vascular or intrathecal uptake observed Radiological data, including multiple fluoroscopic views of the lumbosacral spine, reveal a spinal needle at the right L3/4 posterior neuroforamen. Subsequent views show flow of contrast material flowing superiorly and inferiorly along the nerve root confirming epidural flow. Subsequently, a test dose of 1.5cc of 1% lidocaine solution was administered and patient was observed for two minutes for signs or symptoms of complications, including abdominal pain, shortness of breath, bilateral upper or lower extremity weakness, nausea and vomiting, prior to steroid injection. At this point, a total of 2cc or 10mg of dexamethasone and 6mg betamethasone was injected without incident. Attention was then refocused to the left L3/4 level where the identical procedure was replicated. The procedure tolerated the procedure well without signs or symptoms of complications prior to transfer to the recovery area continued monitoring without incident. The patient was then transferred to the recovery area where they were observed for an appropriate time after the injection. The patient reported a VAS score of 7 prior to the procedure and a post-procedure VAS of 0. POST OP INSTRUCTIONS The patient was provided a Pain Log to continue to record their response to the target-specific procedure prior to follow-up visit with their referring physician. Additionally, specific post-injection care instructions and a contact number to our office were provided if concerns arise regarding possible complications associated with the procedure are suspected.
== END 2024-06-10 16:15 | disposition home or self-care (01) ==
PROVIDERS: Family Provider Family Medicine; PCP Family Medicine; Referring Provider Physical Medicine & Rehabilitation; Visit Provider Physical Medicine & Rehabilitation
DX: M48.061 Spinal stenosis, lumbar region without neurogenic claudication (principal); M51.16 Intervertebral disc disorders with radiculopathy, lumbar region; M47.26 Other spondylosis with radiculopathy, lumbar region
CPT/HCPCS: 64483; 99152; J0702; J1100; J2250; J3490

== ENCOUNTER 2024-08-19 14:01 | Outpatient (CLI) | payer MEDICARE, OTHER, SELFPAY ==
[2024-08-19] VITALS (7 sets, daily range): BP systolic 150–190; BP diastolic 66–76; PULSE 48–55; RESP 13–16; TEMP 36.6; O2SAT 94–100
[2024-08-19] MEDS: MIDAZOLAM 2 MG/2 ML VIAL 1 MG IV (15:39)
[2024-08-19] MEDS: methylPREDNISolone acetate 80 MG/ML VIAL INJ (15:46)
[2024-08-19] MEDS: iopamidoL 15 ML VIAL 3 ML INJ (15:46)
[2024-08-19] MEDS: DEXAMETHASONE 10 MG/ML VIAL INJ (15:47)
[2024-08-19] MEDS: BUPIVACAINE 0.25% (PF) VIAL 2 ML INJ (15:48)
[2024-08-19] MEDS: BETAMETHASONE 30 MG/5 ML MDV 6 MG INJ (15:48)
--- NOTE | 2024-08-19 16:00 | PM.PROC.IR.1 ---
Date/Time/Diagnoses Date of procedure: 08/19/24 Time of procedure: 16:00 Pre-procedure diagnosis: 1. HNP WITH RADICULAR FEATURES, 2. MULTILEVEL CENTRAL STENOSIS, Post-procedure diagnosis: same Procedure Notes Procedure: 1. FLUOROSCOPICALLY GUIDED CONTRAST CONTROLLED INTERLAMINAR EPIDURAL STEROID INJECTION - L5/S1 Indications: Zunilda is referred by SALAZAR Ferreira for treatment of Bilateral Foraminal Stenosis L>R LE symptoms. Physician: Danny Brown Total Fluoroscopy time (seconds): 9 Total sedation minutes: 14 Complications: none Procedure in detail & Post-procedure care: FINDINGS Multilevel Central Spinal Stenosis with Nerve Root Compression DESCRIPTION OF PROCEDURE Fluoroscopically guided, contrast-controlled L5/S1 translaminar epidural steroid injection. Following review of allergy and review of potential side effects and complications, including, but not necessarily limited to, infection, allergic reaction, local tissue breakdown, temporary as well as permanent nerve injury, paralysis, stroke and possible , the patient indicated that the patient understood and agreed to proceed. An informed consent document was signed by the patient, witnessed by a nurse, and placed in the patient's chart. Additionally, other treatment options including modalities, medications, and physical therapy were reviewed with the patient. After review of previous anaesthesic history and IV conscious sedation the patient was deemed safe to proceed with today?s procedure with IV conscious sedation as ASA class II designation. Safety time-out was performed to confirm patient ID, procedure to be performed and site of procedure. IV sedation was accomplished with a combination of 1mg of Versed administered by the RN after DO order, titrated to patient comfort during the course of the procedure while the patient remained responsive to all verbal commands. In the prone position, following sterile prep and drape of the lumbar region, the L5/S1 translaminar space was identified fluoroscopically. The skin was anesthetized via a 25-gauge, 1.5-inch needle with 1% lidocaine solution. At this point, a 22-gauge short bevel spinal needle was atraumatically introduced and advanced under fluoroscopic guidance into the region of the L5/S1 translaminar space. Depth was confirmed on lateral view. Radiological data, including multiple fluoroscopic views of the lumbar spine, reveal a spinal needle at the L5/S1 translaminar space. Lateral views then show placement of the needle in the epidural space. Subsequent views show contrast material flowing superiorly and inferiorly in the epidural space. No vascular or intrathecal uptake is observed. At this point, using loss of resistance technique with saline and air, the epidural space was entered. This was confirmed following negative aspiration with injection of approximately 1.5cc of Isovue 200, showing excellent epidural flow without vascular or intrathecal uptake. At this point, 1 cc of 1% lidocaine solution combined with 2cc or 10mg of dexamethasone and 80mg of depomedrol was injected without incident. The patent tolerated the procedure without signs of symptoms of complications prior to transfer to the recovery area for further monitoring. The patient was then transferred to the recovery area where they were observed for an appropriate period of time after the injection. The patient reported a VAS score of 8 prior to the procedure and a post-procedure VAS of 1. POST OP INSTRUCTIONS The patient was provided a Pain Log to continue to record their response to the target-specific procedure prior to follow-up visit with their referring physician. Additionally, specific post-injection care instructions and a contact number to our office were provided if concerns arise regarding possible complications associated with the procedure are suspected.
== END 2024-08-19 16:12 | disposition home or self-care (01) ==
PROVIDERS: Family Provider Family Medicine; PCP Family Medicine; Referring Provider Physical Medicine & Rehabilitation; Visit Provider Physical Medicine & Rehabilitation
DX: M51.17 Intervertebral disc disorders with radiculopathy, lumbosacral region (principal); M48.07 Spinal stenosis, lumbosacral region
CPT/HCPCS: 62323; 99152; J0702; J1010; J1100; J2250; J3490

== ENCOUNTER 2025-01-15 13:01 | Outpatient (CLI) | payer MEDICARE, OTHER, SELFPAY ==
[2025-01-15] VITALS (8 sets, daily range): BP systolic 115–152; BP diastolic 54–65; PULSE 54–57; RESP 16–18; TEMP 36.8; O2SAT 95–100
[2025-01-15] MEDS: MIDAZOLAM 2 MG/2 ML VIAL 1 MG IV (14:15)
[2025-01-15] MEDS: BETAMETHASONE 30 MG/5 ML MDV 12 MG INJ (14:20)
[2025-01-15] MEDS: LIDOCAINE 1% 20 ML INJ (14:21)
[2025-01-15] MEDS: BETAMETHASONE 30 MG/5 ML MDV 6 MG INJ (14:22)
--- NOTE | 2025-01-15 14:38 | P.PCN_ITS ---
Date/Time/Diagnoses Date of procedure: 01/15/25 Time of procedure: 14:38 Pre-procedure diagnosis: 1. FORAMINAL STENOSIS WITH LE SYMPTOMS Post-procedure diagnosis: same Procedure Notes Procedure: 1. FLUOROSCOPICALLY GUIDED CONTRAST CONTROLLED TRANSFORAMINAL EPIDURAL STEROID INJECTION - BILATERAL L3/4 TFESI Indications: Zunilda is referred by SALAZAR Ferreira for treatment of Foraminal Stenosis with bilateral LE Symptoms Physician: Danny Brown Total Fluoroscopy time (seconds): 12 Total sedation minutes: 16 Complications: none Procedure in detail & Post-procedure care: FINDINGS Foraminal Nerve Root Compression secondary to disc disease and facet hypertrophy DESCRIPTION OF PROCEDURE Following review of allergy and review of potential side effects and complications, including, but not necessarily limited to, infection, allergic reaction, local tissue breakdown, stroke, temporary or permanent nerve injury, paralysis, and possible , the patient indicated that the patient understood and agreed to proceed. An informed consent document was signed by the patient, witnessed by a nurse, and placed in the patient's chart. Additionally, other treatment options including medications, modalities, and physical therapy were reviewed with the patient. After review of previous anaesthesic history and IV conscious sedation the patient was deemed safe to proceed with today?s procedure with IV conscious sedation as ASA class II designation. Safety time-out was performed to confirm patient ID, procedure to be performed and site of procedure. IV sedation was accomplished with a combination of 1mg of Versed was administered by the RN after DO order, titrated to patient comfort during the course of the procedure while the patient remained responsive to all verbal commands In the prone position following sterile prep and drape of the lumbar region, the right L3/4 posterior neuroforamen was identified fluoroscopically. The skin was anesthetized via a 25-gauge 1.5-inch needle with 1% lidocaine solution. At this point, a 25-gauge 3.5-inch spinal needle was atraumatically introduced and advanced under fluoroscopic guidance through the posterior right L3/4 neuroforamen to approximately the anterior aspect of the canal. Depth was confirmed on lateral view. Following negative aspiration, injection of approximately 1.5cc of Isovue 200 under live fluoroscopy in the AP view confirmed excellent flow along the nerve root, into the epidural space without vascular or intrathecal uptake observed Radiological data, including multiple fluoroscopic views of the lumbosacral spine, reveal a spinal needle at the right L3/4 posterior neuroforamen. Subsequent views show flow of contrast material flowing superiorly and inferiorly along the nerve root confirming epidural flow. Subsequently, a test dose of 1.5cc of 1% lidocaine solution was administered and patient was observed for two minutes for signs or symptoms of complications, including abdominal pain, shortness of breath, bilateral upper or lower extremity weakness, nausea and vomiting, prior to steroid injection. At this point, a total of 2cc or 10mg of dexamethasone and 6mg betamethasone was injected without incident. Attention was then refocused to the left L3/4 level where the identical procedure was replicated. The procedure tolerated the procedure well without signs or symptoms of complications prior to transfer to the recovery area continued monitoring without incident. The patient was then transferred to the recovery area where they were observed for an appropriate time after the injection. The patient reported a VAS score of 7 prior to the procedure and a post-procedure VAS of 0. POST OP INSTRUCTIONS The patient was provided a Pain Log to continue to record their response to the target-specific procedure prior to follow-up visit with their referring physician. Additionally, specific post-injection care instructions and a contact number to our office were provided if concerns arise regarding possible compli cations associated with the procedure are suspected.
== END 2025-01-15 14:48 | disposition home or self-care (01) ==
PROVIDERS: PCP Family Medicine; Referring Provider Physical Medicine & Rehabilitation; Visit Provider Physical Medicine & Rehabilitation
DX: M48.061 Spinal stenosis, lumbar region without neurogenic claudication (principal); M51.16 Intervertebral disc disorders with radiculopathy, lumbar region; M47.26 Other spondylosis with radiculopathy, lumbar region
CPT/HCPCS: 64483; 99152; J0702; J1100; J2250